=== PATIENT | female | born 1980 ===

== ENCOUNTER 2019-10-11 09:22 | Outpatient (CLI) | payer OTHER ==
--- NOTE | 2019-10-11 14:24 | XRay Report ---
CHEST 2 VIEWS INDICATION: PNEUMONIA. COMPARISON: None. FINDINGS: Support devices: None. Heart: Within normal limits. Pulmonary vasculature: Normal. Lungs/pleura: No acute air space or interstitial disease. No pneumothorax. Additional findings: It appears that she has had a left mastectomy. IMPRESSION: 1. No acute findings. Signer Name: Sean Mulligan MD Signed: 10/11/2019 2:20 PM Workstation Name: [id number]
== END 2019-10-11 09:23 | disposition home or self-care (01) ==
LOC: SPVIMAG 09:22
PROVIDERS: ATTEND Internal Medicine Hematology
DX: J18.9 Pneumonia, unspecified organism (principal); D05.10 Intraductal carcinoma in situ of unspecified breast; D64.9 Anemia, unspecified; N92.6 Irregular menstruation, unspecified
CPT/HCPCS: 71046